=== PATIENT | female | born 1940 | race Caucasian/White ===

== ENCOUNTER → 2016-06-16 | Outpatient (CLI) | payer MEDICARE, OTHER ==
[~2016-06-16] MED LIST: CARD240C6 PO; CELE200 PO; CLOR1TAB23 PO; HYDR-3533 PO; OMEP20CA5 PO; PRIN10TA PO; WALKMIS6 XX
[2016-06-16 09:27] LABS: ALKALINE PHOSPHATASE 97 U/L (45-117); ALT (GPT) 26 U/L (10-53); ANION GAP 8 MEQ/L (5-15); AST (GOT) 19 U/L (15-37); BICARBONATE 30.2 MEQ/L (21.0-32.0); BLOOD UREA NITROGEN 14 MG/DL (7-18); CHLORIDE 99 MEQ/L (98-107); GLOMERULAR FILTRATION RATE 97 ML/MIN (>89); GLUCOSE,FASTING 93 MG/DL (74-99); POTASSIUM 4.3 MEQ/L (3.5-5.1); SODIUM (NA) 137 MEQ/L (136-145); TOTAL BILIRUBIN ADULT 0.7 MG/DL (0.2-1.0)
[2016-06-16 17:21] LABS: HEMOGLOBIN A1b 1.5 %; HEMOGLOBIN Ao 85.6 %; HEMOGLOBIN P3 3.9 %
== END ==
LOC: PLAB 06:51
PROVIDERS: ATTEND Family Medicine
DX: I10 Essential (primary) hypertension (principal); R73.9 Hyperglycemia, unspecified
CPT/HCPCS: 36415; 80053; 83036

== ENCOUNTER → 2016-12-30 | Outpatient (CLI) | payer MEDICARE, OTHER ==
[2016-12-29 09:43] LABS: ANION GAP 7 MEQ/L (5-15); AST (GOT) 23 U/L (15-37); BICARBONATE 30.3 MEQ/L (21.0-32.0); BLOOD UREA NITROGEN 16 MG/DL (7-18); CHLORIDE 100 MEQ/L (98-107); GLOMERULAR FILTRATION RATE 84 ML/MIN (>89); POTASSIUM 5.7 MEQ/L (3.5-5.1); SODIUM (NA) 137 MEQ/L (136-145)
[2016-12-29 09:44] LABS: GLUCOSE,FASTING 99 MG/DL (74-99)
[2016-12-29 09:50] LABS: ALKALINE PHOSPHATASE 85 U/L (45-117); ALT (GPT) 31 U/L (10-53); LDL CHOLESTEROL 93 MG/DL (0-99); TOTAL BILIRUBIN ADULT 0.6 MG/DL (0.2-1.0)
== END ==
LOC: PLAB 09:59
PROVIDERS: ATTEND Family Medicine
DX: R89.9 Unspecified abnormal finding in specimens from other organs, systems and tissues (principal); I10 Essential (primary) hypertension
CPT/HCPCS: 36415; 80053; 80061; 84132

== ENCOUNTER → 2017-06-20 | Outpatient (CLI) | payer MEDICARE, OTHER ==
[2017-06-20 09:42] LABS: ALBUMIN 3.8 GM/DL (3.4-5.0); AST (GOT) 25 U/L (15-37); BICARBONATE 31.9 MEQ/L (21.0-32.0); BLOOD UREA NITROGEN 7 MG/DL (7-18); CALCIUM 9.1 MG/DL (8.5-10.1); CHOLESTEROL 180 MG/DL (120-200); CREATININE 0.64 MG/DL (0.50-1.00); GLOMERULAR FILTRATION RATE 90 ML/MIN (>89); GLUCOSE,FASTING 108 MG/DL (74-99)
[2017-06-20 09:43] LABS: ALT (GPT) 29 U/L (10-53); CHLORIDE 100 MEQ/L (98-107); SODIUM (NA) 138 MEQ/L (136-145)
[2017-06-20 09:49] LABS: ALKALINE PHOSPHATASE 105 U/L (45-117); CHOLESTEROL/ HDL RATIO 1.97 RATIO; HDL CHOLESTEROL 91.3 MG/DL (40.0-60.0); LDL CHOLESTEROL 69 MG/DL (0-99); TOTAL BILIRUBIN ADULT 0.7 MG/DL (0.2-1.0); TOTAL PROTEIN 7.1 GM/DL (6.4-8.2); TRIGLYCERIDES 98 MG/DL (42-150)
[2017-06-20 09:50] LABS: AUTOMATED NEUTROPHIL # 4.6 TH/MM3 (1.8-7.7); BASOPHIL # 0.1 TH/MM3 (0-0.2); EOSINOPHIL # 0.1 TH/MM3 (0-0.4); EOSINOPHIL % 1.9 % (0.0-4.0); HEMATOCRIT 45.2 % (35.0-46.0); HEMOGLOBIN 15.5 GM/DL (11.6-15.3); LYMPH % 18.6 % (9.0-44.0); LYMPHOCYTE # 1.3 TH/MM3 (1.0-4.8); MEAN CELL VOLUME 98.9 FL (80.0-100.0); MEAN CORPUSCULAR HGB CONC 34.4 % (32.0-36.0); MEAN PLATELET VOLUME 8.1 FL (7.0-11.0); MONO % 11.7 % (0.0-8.0); MONOCYTE # 0.8 TH/MM3 (0-0.9); NEUT % 66.8 % (16.0-70.0); PLATELET COUNT 335 TH/MM3 (150-450); RED BLOOD COUNT 4.57 MIL/MM3 (4.00-5.30); RED CELL DISTRIBUTION WIDTH 13.6 % (11.6-17.2); WHITE BLOOD COUNT 6.9 TH/MM3 (4.0-11.0)
== END ==
LOC: PLAB 07:06
PROVIDERS: ATTEND Family Medicine
DX: I10 Essential (primary) hypertension (principal); K21.9 Gastro-esophageal reflux disease without esophagitis
CPT/HCPCS: 36415; 80053; 80061; 85025

== ENCOUNTER → 2017-06-28 | Outpatient (CLI) | payer MEDICARE, OTHER ==
[2017-06-28 18:22] LABS: FOLATE GREATER THAN 20.0 NG/ML (3.1-17.5)
[2017-06-28 22:34] LABS: HEMOGLOBIN A1C 5.3 % (4.3-6.0)
== END ==
LOC: PLAB 15:27
PROVIDERS: ATTEND Family Medicine
DX: R63.0 Anorexia (principal)
CPT/HCPCS: 36415; 82306; 82607; 82746; 83036; 84443

== ENCOUNTER 2017-07-11 10:24 | Emergency (ER) | payer MEDICARE, OTHER ==
[~2017-07-11] VITALS: Ht 152.4 cm; Wt 42.6 kg
[2017-07-11 10:44] VITALS: BP 154/78; PULSE 83; RESP 18; TEMP 98.4; O2SAT 92
[2017-07-11] MEDS ORDERED: CALC1TAB12 PO (11:16)
[2017-07-11] MEDS ORDERED: MULTTAB67 PO (11:16)
[2017-07-11] MEDS ORDERED: CHLO7.5 PO (11:16)
[2017-07-11] MEDS ORDERED: LISI10TA3 PO (11:16)
[2017-07-11] MEDS ORDERED: CARD240C6 PO (11:16)
[2017-07-11] MEDS ORDERED: PRIL20TA2 PO (11:16)
[2017-07-11] MEDS ORDERED: CELE200C PO (11:16)
--- NOTE | 2017-07-11 11:22 | PD ---
HPI Chief Complaint: Cold / Flu Symptoms Time Seen by Provider: 11:16 Travel History International Travel<30 days: No Contact w/Intl Traveler<30days: No Traveled to known affect area: No History of Present Illness HPI 77-year-old female presents for evaluation of cough and congestion. Symptoms started 5 days ago. The cough is productive with yellow sputum production. She has had some myalgias but no objective fevers. She reports that she was on a cruise to the [facility] last week and there are multiple people on the cruise ship that were diagnosed with influenza. She denies dyspnea, chest pain, abdominal pain. Denies history of COPD, asthma. No other complaints at this time. PFSH Past Medical History Arthritis: Yes Anxiety: Yes Heart Rhythm Problems: Yes Cardiovascular Problems: Yes Diminished Hearing: No GERD: Yes Hypertension: Yes Musculoskeletal: Yes (OSTEOARTHRITIS/OSTEOPROSIS) Immunizations Current: Yes Tetanus Vaccination: < 5 Years Influenza Vaccination: Yes ?: Not Menopausal: Yes Past Surgical History Appendectomy: Yes Section: Yes Hysterectomy: Yes Social History Alcohol Use: Yes (OCCAISIONAL) Tobacco Use: No Substance Use: No Allergies-Medications (Allergen,Severity, Reaction): Coded Allergies: penicillin G (Unverified Allergy, Mild, Hives, 07/11/17) Reported Meds & Prescriptions Reported Meds & Active Scripts Active Tessalon Perles (Benzonatate) 100 Mg Cap 100 Mg PO TID PRN Prednisone 20 Mg Tab 20 Mg PO BID 5 Days Proair Hfa 8.5 GM Inh (Albuterol Sulfate) 90 Mcg/Act Aer 2 Puff INH Q4-6H PRN 108 mcg/actuation Reported Prilosec (Omeprazole Magnesium) 20 Mg Tab 1 Tab PO DIRECTED Tranxene T (Clorazepate Dipotassium) 7.5 Mg Tab 3.75 Mg PO BID PRN Calcium 500 +D (Calcium Carbonate-Cholecalciferol) 500-400 Mg-Unit Tab 1 Tab PO BID Multiple Vitamin 1 Tab 1 Tab PO DAILY Celebrex (Celecoxib) 200 Mg Cap 200 Mg PO DAILY Lisinopril 10 Mg Tab 10 Mg PO DAILY Cardizem CD 24 HR (Diltiazem CD 24 HR) 240 Mg Caper 240 Mg PO DAILY Review of Systems Except as stated in HPI: all other systems reviewed are Neg Physical Exam Narrative GENERAL: Well-developed well-nourished female in no acute distress SKIN: Warm and dry. HEAD: Atraumatic. Normocephalic. EYES: Pupils equal and round. No scleral icterus. No injection or drainage. ENT: No nasal bleeding or discharge. Mucous membranes pink and moist. NECK: Trachea midline. No JVD. CARDIOVASCULAR: Regular rate and rhythm. No murmur appreciated. RESPIRATORY: No accessory muscle use. Mild rhonchi noted bilaterally. GASTROINTESTINAL: Abdomen soft, non-tender, nondistended. Hepatic and splenic margins not palpable. MUSCULOSKELETAL: No obvious deformities. No clubbing. No cyanosis. No edema. NEUROLOGICAL: Awake and alert. No obvious cranial nerve deficits. Motor grossly within normal limits. Normal speech. PSYCHIATRIC: Appropriate mood and affect; insight and judgment normal. Data Data Last Documented VS Vital Signs Date Time Temp Pulse Resp B/P (MAP) Pulse Ox O2 Delivery O2 Flow Rate FiO2 07/11/17 10:44 98.4 83 18 154/78 (103) 92 Orders Orders Chest, Single Ap (07/11/17 ) Albuterol-Ipratropium Neb (Duoneb Neb) (07/11/17 11:30) Ed Discharge Order (07/11/17 12:20) [facility] Medical Decision Making Medical Screen Exam Complete: Yes Emergency Medical Condition: Yes Medical Record Reviewed: Yes Differential Diagnosis Influenza, pneumonia, reactive airway disease, bronchitis Narrative Course 77-year-old female with productive cough, congestion, myalgias for 5 days. She appears well. She reports multiple sick contacts with influenza on a cruise ship last week. Her pulse oximetry is slightly low at 93-94% on room air but she is conversing normally, denies dyspnea, is not tachypneic. She does have scattered rhonchi. She will be given DuoNeb treatment and a chest x-ray has been ordered. Chest x-ray is normal. Upon reexamination she reports symptom improvement with DuoNeb treatment. Therefore the patient be given a prescription for an albuterol inhaler. She will also be given prescriptions for prednisone, Tessalon, for symptom treatment. Diagnosis Primary Impression: Bronchitis Additional Instructions: Medication as prescribed. Tylenol and Motrin for fever. Stay well-hydrated and well-nourished. Follow-up with primary care physician as needed and return for any emergent medical conditions. Med/Other Pt SpecificInfo: Prescription(s) given Scripts Benzonatate (Tessalon Perles) 100 Mg Cap 100 MG PO TID Y for COUGH, #30 CAP 0 Refills Prov: Erik Clay MD 07/11/17 Prednisone (Prednisone) 20 Mg Tab 20 MG PO BID for 5 Days, #10 TAB 0 Refills Prov: Erik Clay MD 07/11/17 Albuterol 8.5 GM Inh (Proair Hfa 8.5 GM Inh) 90 Mcg/Act Aer 2 PUFF INH Q4-6H Y for SHORTNESS OF BREATH, #1 INHALER 0 Refills 108 mcg/actuation Prov: Erik Clay MD 07/11/17 Disposition: 01 DISCHARGE HOME Condition: Stable Carson Newton Jul 11, 2017 11:22
[2017-07-11] MEDS: RESP: ALBUTEROL 2.5 MG/IPRATROPIUM 0.5 MG NEB (SCH) INH ×2 (11:30→11:31)
--- NOTE | 2017-07-11 11:57 | RADRPT ---
EXAM DATE/TIME: 07/11/2017 11:49 [facility] COMPARISON: No previous studies available for comparison. INDICATIONS : Cough, congestion, short of breath. MEDICAL HISTORY : None. SURGICAL HISTORY : None. ENCOUNTER: Initial ACUITY: 4 - 6 days PAIN SCORE: 10 LOCATION: Bilateral chest FINDINGS: Bony structures are intact with normal soft tissues. There is underlying and tortuosity described amie nges of the aorta with calcification in the aortic knob. Heart is normal size with normal vascularity . Lung coleman are mildly hyperinflated with no acute cardiopulmonary process. CONCLUSION: No acute disease. Jack Sweeney MD on July 11, 2017 at 11:54 Board Certified Radiologist. This report was verified electronically.
[2017-07-11] MEDS ORDERED: ALBUAER3 INH (12:21)
[2017-07-11] MEDS ORDERED: PRED20 PO (12:21)
[2017-07-11] MEDS ORDERED: BENZ100 PO (12:21)
== END 2017-07-11 12:33 | disposition home or self-care (01) ==
LOC: PHEFT 10:24
DX: J40 Bronchitis, not specified as acute or chronic (principal); I10 Essential (primary) hypertension; F41.9 Anxiety disorder, unspecified; K21.9 Gastro-esophageal reflux disease without esophagitis; M19.90 Unspecified osteoarthritis, unspecified site; Z88.0 Allergy status to penicillin; Z79.899 Other long term (current) drug therapy
CPT/HCPCS: 71045; 94640; 94664; 99284